=== PATIENT | female | born 1990 | race Caucasian/White ===

== ENCOUNTER 2021-01-01 23:50 | Emergency (ER) | payer BC, OTHER ==
[2021-01-01 23:57] VITALS: BP 105/40; PULSE 66; TEMP 98.2; BMI 20.5
[2021-01-02 01:02] LABS: EPI CELLS 11 /uL (0-25.1); HYALINE CASTS 12 /uL (0-3.1); PH,URINE 8.5 (5.0-8.0); URINE APPEARANCE TURBID; URINE BACTERIA 121 /uL (0-1359); URINE BILIRUBIN NEGATIVE (NEGATIVE); URINE COLOR RED; URINE GLUCOSE (UA) NEGATIVE (NEGATIVE); URINE KETONE NEGATIVE (NEGATIVE); URINE LEUK ESTERASE 3+ (NEGATIVE); URINE NITRITE NEGATIVE (NEGATIVE); URINE PROTEIN 2+ (NEGATIVE); URINE WBC 756 /uL (0-25.8)
[2021-01-02] MEDS ORDERED: NITROFURANTOIN MACROCRYSTAL 50 MG CAPSULE (FP) ONE (01:13)
[2021-01-02] MEDS ORDERED: NITROFURANTOIN MACROCRYSTAL 50 MG CAPSULE (FP) PO SCH (01:15)
[2021-01-02 02:21] LABS: URINE RBC 20256.9 /uL (0-23.9)
== END 2021-01-02 01:23 | disposition home or self-care (01) ==
LOC: FER 23:50
DX: R31.9 Hematuria, unspecified (principal); R35.0 Frequency of micturition; N39.0 Urinary tract infection, site not specified
CPT/HCPCS: 81003; 81025; 87086; 87186; 99283-25